=== PATIENT | female | born 1995 | race Two or more races ===

== ENCOUNTER 2021-11-08 22:20 | Inpatient (IN) | payer MEDICAID ==
[~2021-11-08] VITALS: Ht 185.4 cm; Wt 136.1 kg
[2021-11-08 23:08] VITALS: BP 120/60
[2021-11-09] MEDS: LACTATED RINGERS 500 ML IV SCH ×5 (02:12→23:49)
[2021-11-09] MEDS ORDERED: LACTATED RINGERS 500 ML IV SCH (05:40)
[2021-11-09] MEDS ORDERED: AMPICILLIN 2,000 MG in NACL 0.9% MINI-BAG PLUS 100 ML IV SCH (05:40)
[2021-11-09] MEDS ORDERED: METHYLERGONOVINE 0.2 MG/ML AMP IM PRN ×2 (05:40→19:30)
[2021-11-09] MEDS ORDERED: CARBOPROST 250 MCG/ML AMP IM PRN ×2 (05:40→19:30)
[2021-11-09] MEDS ORDERED: AMPICILLIN 1,000 MG in NACL 0.9% MINI-BAG PLUS 50 ML IV SCH (10:00)
--- NOTE | 2021-11-09 13:46 | NUR ---
PATIENT HAS BEEN SCREENED AND CATEGORIZED LOW NUTRITION RISK. PATIENT WILL BE SEEN WITHIN 7 DAYS OF ADMISSION. 11/15/[address]
[2021-11-09] MEDS ORDERED: NALBUPHINE 10 MG/ML AMP IVP PRN (19:30)
[2021-11-09] MEDS ORDERED: LACTATED RINGERS 500 ML IV ONE (19:30)
[2021-11-09] MEDS ORDERED: ONDANSETRON 4 MG/2 ML VIAL IVP PRN (19:40)
[2021-11-09 19:54] LABS: BASOPHILS % (AUTO) 0.5 % (0.0-2.0); EOSINOPHILS # (AUTO) 0.2 K/uL (0-0.4); HEMATOCRIT 38.9 % (36-48); HEMOGLOBIN 12.9 g/dL (12.0-16.0); LYMPHOCYTES % (AUTO) 30.1 % (20.5-51.1); MEAN CORPUSCULAR HEMOGLOBIN 28 pg (27-31); MEAN CORPUSCULAR HGB CONC 33 g/dL (33-37); MEAN CORPUSCULAR VOLUME 83.1 fL (80-94); MONOCYTES # (AUTO) 0.7 K/uL (0.8-1.0); NEUTROPHILS # (AUTO) 5.9 K/uL (1.8-7.7); NEUTROPHILS % (AUTO) 60.4 % (42.2-75.2); PLATELET COUNT (AUTO) 289 K/uL (140-450); RED BLOOD CELL COUNT(AUTO) 4.69 MIL/uL (4.20-5.40); WHITE BLOOD COUNT (AUTO) 9.8 K/uL (4.8-10.8)
[2021-11-09 20:07] LABS: ALBUMIN 2.5 g/dL (3.4-5.0); ANION GAP 12.7 (8-16); CREATININE 0.5 mg/dL (0.6-1.3); POTASSIUM 3.7 mmol/L (3.5-5.1); TOTAL BILIRUBIN 0.2 mg/dL (0.0-1.0)
[2021-11-09] MEDS ORDERED: OXYTOCIN 20 UNITS in LACTATED RINGERS 1,000 ML IV SCH (20:15)
[2021-11-09 20:45] LABS: APPEARANCE,URINE HAZY (CLEAR); BILIRUBIN,URINE NEGATIVE (NEGATIVE); BLOOD, URINE TRACE-I (NEGATIVE); COLOR,URINE YELLOW (YELLOW); LEUKOCYTE ESTERASE ,URINE 3+ (NEGATIVE); NITRITE, URINE NEGATIVE (NEGATIVE); UGLUCOSE NEGATIVE (NEGATIVE)
[2021-11-09 20:52] LABS: RBC,URINE 0-5 /HPF (0-5)
[2021-11-09 20:54] LABS: OTHER CASTS, URINE None Seen /LPF (None Seen)
[2021-11-09] MEDS ORDERED: CLINDAMYCIN 900 MG in DEXTROSE 5% 100 ML IV SCH (21:00)
[2021-11-09] MEDS ORDERED: MISOPROSTOL 25 MCG TAB VG SCH (21:05)
[2021-11-09] MEDS ORDERED: MISOPROSTOL 25 MCG TAB VG PRN (21:10)
[2021-11-09] MEDS ORDERED: CLINDAMYCIN 900 MG/6 ML VIAL IV ONE (22:55)
[2021-11-09] MEDS ORDERED: TERBUTALINE 1 MG/ML VIAL SUBQ SCH (23:50)
[2021-11-10] MEDS ORDERED: TERBUTALINE 1 MG/ML VIAL SUBQ ONE (00:15)
[2021-11-10] MEDS ORDERED: CITRIC ACID/SODIUM CITRATE 30 ML UDC PO SCH (00:35)
[2021-11-10] MEDS ORDERED: CLINDAMYCIN 900 MG/6 ML VIAL IV ONE (00:41)
[2021-11-10] MEDS ORDERED: CITRIC ACID/SODIUM CITRATE 30 ML UDC ONE (00:42)
[2021-11-10] MEDS ORDERED: MORPHINE PRES FREE 10 MG/10 ML AMP IV ONE (00:51)
[2021-11-10] MEDS ORDERED: TEMAZEPAM 15 MG CAP PO PRN (01:50)
[2021-11-10] MEDS ORDERED: MAGNESIUM CITRATE 300 ML BTL PO SCH (01:50)
[2021-11-10] MEDS ORDERED: oxyCODONE/APAP 5/325 MG 1 TAB TAB PO PRN ×2 (01:50)
[2021-11-10] MEDS ORDERED: METHYLERGONOVINE 0.2 MG/ML AMP IM PRN (01:50)
[2021-11-10] MEDS ORDERED: OXYTOCIN 20 UNITS in LACTATED RINGERS 1,000 ML IV SCH ×2 (01:50→02:55)
[2021-11-10] MEDS ORDERED: SIMETHICONE 80 MG TAB.CHEW PO PRN (01:50)
[2021-11-10] MEDS ORDERED: IBUPROFEN 800 MG TAB PO PRN (01:50)
[2021-11-10] MEDS ORDERED: SUGAMMADEX SODIUM 200 MG/2 ML VIAL IV ONE (02:35)
[2021-11-10] MEDS ORDERED: HYDROmorphone PFS 2 MG/ML SYR ONE (02:54)
[2021-11-10] MEDS ORDERED: ACETAMINOPHEN 100 ML IV ONE ×2 (02:55)
[2021-11-10] MEDS ORDERED: diphenhydrAMINE 50 MG/ML VIAL IVP PRN (02:55)
[2021-11-10] MEDS ORDERED: ONDANSETRON 4 MG/2 ML VIAL IVP PRN (02:55)
[2021-11-10] MEDS: HYDROmorphone 1 MG/ML AMP IVP PRN ×4 (02:55→03:25)
[2021-11-10] MEDS ORDERED: KETOROLAC 30 MG/ML VIAL IVP PRN (02:55)
[2021-11-10] MEDS ORDERED: NALOXONE 0.4 MG/ML VIAL IVP PRN (02:55)
[2021-11-10] MEDS: OXYTOCIN 20 UNITS/LR PREMIX 1,000 ML IV ONE ×3 (03:24→03:45)
[2021-11-10] MEDS ORDERED: OXYTOCIN 20 UNITS/LR PREMIX 1,000 ML IV ONE ×2 (09:43→17:40)
[2021-11-10] MEDS: KETOROLAC 30 MG/ML VIAL IVP PRN ×2 (16:34→23:15)
[2021-11-10] MEDS: DOCUSATE SOD/SENNA 50/8.6 MG 1 TAB PO SCH (22:19)
[2021-11-11 11:34] LABS: BASOPHILS % (AUTO) 0.3 % (0.0-2.0); EOSINOPHILS # (AUTO) 0.1 K/uL (0-0.4); EOSINOPHILS % (AUTO) 0.7 % (0.0-4.0); HEMATOCRIT 31.7 % (36-48); HEMOGLOBIN 10.5 g/dL (12.0-16.0); LYMPHOCYTES # (AUTO) 2.2 K/uL (2.5-16.5); LYMPHOCYTES % (AUTO) 22.7 % (20.5-51.1); MEAN CORPUSCULAR HEMOGLOBIN 28 pg (27-31); MEAN CORPUSCULAR HGB CONC 33 g/dL (33-37); MEAN CORPUSCULAR VOLUME 83.9 fL (80-94); MONOCYTES # (AUTO) 0.8 K/uL (0.8-1.0); MONOCYTES % (AUTO) 7.6 % (1.7-9.3); NEUTROPHILS # (AUTO) 6.8 K/uL (1.8-7.7); NEUTROPHILS % (AUTO) 68.7 % (42.2-75.2); PLATELET COUNT (AUTO) 278 K/uL (140-450); RED BLOOD CELL COUNT(AUTO) 3.78 MIL/uL (4.20-5.40); WHITE BLOOD COUNT (AUTO) 9.9 K/uL (4.8-10.8)
[2021-11-11] MEDS ORDERED: CAMERA MC ONE (19:28)
[2021-11-11] MEDS: DOCUSATE SOD/SENNA 50/8.6 MG 1 TAB PO SCH (21:08)
== END 2021-11-12 10:25 | disposition home or self-care (01) | DRG 540 ==
LOC: MLD 22:20 → OBSVTOIN 11-09 18:50 → MFCC 11-10 03:50
PROVIDERS: ADMIT Obstetrics & Gynecology; ATTEND Obstetrics & Gynecology
PROC: 10D00Z1 Extraction of Products of Conception, Low, Open Approach (ICD-10-PCS; principal; 2021-11-10 01:11)
DX: O41.03X0 Oligohydramnios, third trimester, not applicable or unspecified (principal); R71.0 Precipitous drop in hematocrit; Z20.822 Contact with and (suspected) exposure to COVID-19; Z37.0 Single live birth; Z3A.39 39 weeks gestation of pregnancy
CPT/HCPCS: G0378 ×2; 36415; 59025; 59200; 76815; 80053; 81000; 81001; 85025; 86592; 86762; 86886; 86900; 86901; 87086; 87340; 88307; J1170; J1885; J2270; J2590; J3105; J3490; J7060; J7120; Q0092